=== PATIENT | female | born 1980 | race Caucasian/White ===

== ENCOUNTER → 2017-02-27 | Outpatient (CLI) | payer BC ==
[~2017-02-27] MED LIST: ACET-749 PO; MTR600X PO; PRENTAB26 PO
== END | disposition home or self-care (01) ==
LOC: C.PAPS 09:55
PROVIDERS: ATTEND Physician Assistant
DX: Z01.419 Encounter for gynecological examination (general) (routine) without abnormal findings (principal)

== ENCOUNTER 2019-04-28 07:22 | Inpatient (IN) ==
[2019-04-28] MEDS ORDERED: OXYTOCIN 30 UNITS/500 ML BAG IV PRN ×2 (08:49→10:20)
[2019-04-28] MEDS ORDERED: LACTATED RINGER'S 1,000 ML IV PRN (08:49)
--- NOTE | 2019-04-28 08:59 | History & Physical Report ---
Date of Service April 28, 2019 Assessment & Plan (1) : Spontaneous labor. Will obtain labs and IV access. Anticipate . Patient would like to do unmedicated delivery - she did this with her previous delivery. History of Present Illness Chief Complaint: spontaneous labor Primary Care Provider: Lanie Simon DO 38yo @ 37 5/7 presents with contractions and bloody show. + movement. No leaking of fluid. complicated by advanced maternal age and obesity. 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 Membranes intact. Small amount of bloody show. FHT Cat 1 [place] Q 3 min Results & Data Vital Signs (Past 12 Hours) Vital Signs Temp Pulse Resp BP 04/28/19 07:56 90 125/81 04/28/19 07:33 36.7 C 20 04/28/19 07:30 94 H 156/82 H
[2019-04-28 09:17] LABS: Hematocrit (blood only) 40.7 % (37-47); Mean Corpuscular Volume 88.7 fL (80-100); Mean Platelet Volume 11.6 fL (7.4-10.4); Platelet Count 189 K/uL (130-400); RDW Coefficient of Variation 14.2 % (11.5-14.5); RDW Standard Deviation 46.1 fL (36.4-46.3); Red Blood Count 4.59 M/uL (4.2-5.4); White Blood Count 16.86 K/uL (4.8-10.8)
[2019-04-28] MEDS ORDERED: OXYTOCIN 30 UNITS/500ML NSS ONE (09:20)
[2019-04-28 09:22] LABS: Mean Corpuscular Hgb Conc 34.4 g/dL (32-36)
[2019-04-28] MEDS ORDERED: IBUPROFEN 600 MG TAB PO ONE (10:18)
--- NOTE | 2019-04-28 10:19 | Delivery Summary ---
Vaginal Delivery Summary Date of Service April 28, 2019 Vaginal Delivery Summary Vaginal Delivery Summary: Pre-delivery diagnoses: 38yo @ 37 12/25, spontaneous labor, advanced maternal age Post-delivery diagnoses: same Procedure: spontaneous vaginal delivery Surgeon: Corrine Birmingham DO Complications: none Findings: Viable male . Apgars: 8/9 . Weight pending, please see nursery records Estimated blood loss: 300ml Description of delivery: The patient progressed to complete without anesthesia. She then began to push. She spontaneously vaginally delivered a viable male from the cephalic presentation. The head delivered in EDUIN position. Nuchal cord x 1, easily reduced. The anterior shoulder delivered, followed by the posterior shoulder, followed by the body. The baby was placed on mother's abdomen and a spontaneous cry was heard. Delayed cord clamping was employed, and the cord was doubly clamped and cut. Cord blood was obtained. The placenta was delivered spontaneously intact with a 3-vessel cord. The uterus and vagina were swept of clots and debris. IV pitocin was given. The uterus became firm. The cervix, vagina, and perineum were inspected and a 1st degree perineal lacerations was noted. It was hemostatic, and patient elected to leave this to heal naturally rather than suture repair. Excellent hemostasis was observed. The mother and baby are recovering in stable and good condition in the room. Sponge and instrument counts were correct x 2. Corrine Birmingham DO [facility] [place]
[2019-04-28] MEDS ORDERED: BISACODYL 10 MG SUPP PR PRN (10:20)
[2019-04-28] MEDS ORDERED: SUPERCREAM 0.870% 15 GM JAR EXT PRN (10:20)
[2019-04-28] MEDS ORDERED: ACETAMINOPHEN 325 MG TAB PO PRN (10:20)
[2019-04-28] MEDS ORDERED: BENZOCAINE 20% AER SPR 82.5 GM CAN EXT PRN (10:20)
[2019-04-28] MEDS ORDERED: HYDROCORTISONE ACETATE 25 MG SUPP PR PRN (10:20)
[2019-04-28] MEDS ORDERED: OXYCODONE/ACETAMINOPHEN 5mg/325mg TAB PO PRN (10:20)
[2019-04-28] MEDS: DOCUSATE SODIUM 100 MG CAP PO SCH (20:48)
[2019-04-28] MEDS: IBUPROFEN 600 MG TAB PO PRN (20:49)
[2019-04-29] MEDS: IBUPROFEN 600 MG TAB PO PRN ×4 (03:32→23:16)
--- NOTE | 2019-04-29 06:18 | Obstetrical Progress Note ---
Date of Service <Prudencio Kaye MD - Last Filed: 04/29/19 07:04> April 29, 2019 Assessment & Plan <Prudencio Kaye MD - Last Filed: 04/29/19 07:04> (1) : on 04/28 PPD#1 -Feels well today, eating well, voiding well, ambulating well -pain well controlled -After discharge will have 6 week follow-up Subjective <Prudencio Kaye MD - Last Filed: 04/29/19 07:04> Feeling well today, having some continued abdominal cramping, able to void without difficulties; continued to have some spotting but has continued to lessen Eyes: no diplopia and no worsening vision Cardiovascular: no chest pain and no dyspnea Gastrointestinal: no abdominal pain, no nausea, no vomiting, no constipation and no diarrhea/loose stools Physical Exam <Prudencio Kaye MD - Last Filed: 04/29/19 07:04> Cardiovascular Rate/Rhythm: regular rate and regular rhythm Heart Sounds: normal S1 and normal S2; no gallop, no murmur and no cardiac rub Extremities: no edema Genitourinary OB Exam Abdomen: + fundal height Fundus: + firm and + relation to umbilicus (4cm below) Manual OB Exam: + cervical dilation, + cervical effacement, + station and + amniotic fluid OB Exam Monitor Tracing: + external FHT monitor used Results & Data <Prudencio Kaye MD - Last Filed: 04/29/19 07:04> Vital Signs (Past 12 Hours) Vital Signs Temp Pulse Resp BP Pulse Ox 04/29/19 03:25 36.6 C 101 H 16 129/80 97 04/28/19 23:05 36.5 C 86 16 113/72 96 04/28/19 19:55 37.2 C 96 H 18 114/74 95 Medications Administered Current Inpatient Medications Acetaminophen (Tylenol) 650 mg PO Q6H PRN PRN Reason: Pain/BASSETT/Fever Stop: 05/28/19 10:19 Benzocaine (Dermoplast Pain Relieving [place]) 1 appln EXT PRN PRN PRN Reason: Perineal Discomfort Stop: 05/28/19 10:19 Bisacodyl (Dulcolax) 5 mg PO 2000 [facility] Stop: 04/29/19 20:01 Bisacodyl (Dulcolax) 10 mg [place] DAILY PRN PRN Reason: No BM on 2nd post- day Stop: 05/28/19 10:19 Cocaine HCl (Supercream 0.870%) 1 gm EXT BID PRN PRN Reason: Hemorrhoidal Inflammation Stop: 05/12/19 10:19 Diphtheria/Pertussis/Tetanus Vacc (Adacel) 0.5 ml IM .ONCE ONE Stop: 04/29/19 09:01 Docusate Sodium (Colace) 100 mg PO DAILY@08,21 [facility] Stop: 05/28/19 20:59 Last Admin: 04/28/19 20:48 Dose: 100 mg Documented by: Hydrocortisone (Anusol Hc) 25 mg [place] BID PRN PRN Reason: Hemorrhoidal Inflammation Stop: 05/28/19 10:19 Oxytocin (Pitocin) 30 units in 500 mls @ 333.333 mls/hr IV .Q1H30M PRN; Protocol PRN Reason: Bleeding Control Stop: 05/28/19 10:19 Last Admin: 04/28/19 09:50 Dose: 20 units/hr, 333.3 mls/hr Documented by: Ibuprofen (Motrin) 600 mg PO Q4H PRN PRN Reason: Pain/BASSETT/Cramping/Fever Stop: 05/28/19 10:19 Last Admin: 04/29/19 03:32 Dose: 600 mg Documented by: Oxycodone/Acetaminophen (Percocet 5mg/325mg) 1 tab PO Q4H PRN PRN Reason: Pain not relieved by... Stop: 05/12/19 10:19 Prenat Multivit/Excel Analyst/Iron/Folic Ac ( Vitamin) 1 tab PO DAILY@08 [facility] Stop: 05/29/19 07:59 <Corrine Birmingham DO - Last Filed: 04/29/19 07:48> Co-Signing Physician Notes Resident Physician Supervision Note: I interviewed and examined the patient. Discussed with Dr. Kaye and agree with findings and plan as documented in the note. Any exceptions or clarifications are listed here: PPD#1 doing well. Anticipate DC home tomorrow. In resident's note above, there is an error stating there is cervical exam and monitoring - this is not correct, but unable to remove this from [facility] for some reason. Documented By: Corrine B. Vinnie, DO Resident Activity Tracking <Prudencio Kaye MD - Last Filed: 04/29/19 07:04> Resident Involvement: Resident Care Provided Care Provided: Adult Hospital Medicine
[2019-04-29 06:52] LABS: Hematocrit (blood only) 33.9 % (37-47); Hemoglobin 11.2 g/dL (12.0-16.0); Mean Corpuscular Volume 90.2 fL (80-100); Platelet Count 166 K/uL (130-400); RDW Coefficient of Variation 14.4 % (11.5-14.5); RDW Standard Deviation 47.5 fL (36.4-46.3); Red Blood Count 3.76 M/uL (4.2-5.4); White Blood Count 12.74 K/uL (4.8-10.8)
[2019-04-29] MEDS: PRENATAL VITAMIN 1 TAB PO SCH (08:43)
[2019-04-29] MEDS: DOCUSATE SODIUM 100 MG CAP PO SCH ×2 (08:43→19:21)
[2019-04-29] MEDS ORDERED: DIPHTHERIA/TETANUS/PERTUSSIS 0.5 ML SYR/VIAL IM ONE (09:00)
[2019-04-29] MEDS ORDERED: BISACODYL 5 MG TABEC PO SCH (20:00)
[2019-04-30] MEDS: IBUPROFEN 600 MG TAB PO PRN (06:15)
[2019-04-30 06:32] LABS: Hematocrit (blood only) 35.4 % (37-47); Hemoglobin 11.6 g/dL (12.0-16.0)
--- NOTE | 2019-04-30 06:46 | Obstetrical Progress Note ---
Date of Service <Prudencio Kaye MD - Last Filed: 04/30/19 06:46> April 30, 2019 Assessment & Plan <Prudencio Kaye MD - Last Filed: 04/30/19 06:46> (1) : on 04/28 PPD#2 -Feels well today, eating well, voiding well, ambulating well -pain well controlled -After discharge will have 6 week follow-up Subjective <Prudencio Kaye MD - Last Filed: 04/30/19 06:46> Ms Daniel is a 38y/o female ; PPD #2 following spontaneous vaginal delivery at 37 weeks; doing well this morning; some continued abdominal cramping/pain; voiding well, passing gas, but no bowel movements; tolerating meals overnight; and able to ambulate some; some persistent spotting with intermittent improvement this morning. Review of Systems Constitutional: denies fever; chills; sweats; headache Respiratory: denies shortness of breath, difficulty breathing Cardiac: denies chest pain; palpitations; chest pressure Breast: denies breast pain : denies dysuria Physical Exam <Prudencio Kaye MD - Last Filed: 04/30/19 06:46> General: alert; oriented; no acute distress Cardiac: RRR; no m/g/r Respiratory: CTAB a/p; no wheezes/rales/rhonchi; no increased work of breathing; symmetrical chest rise; no respiratory distress Abdomen: soft; NT/ND; bowel sounds positive Uterus: uterine fundus firm; palpable 6cm below umbilicus Lower extrem: no lower extremity edema or swelling; no deep calf pain; Judy's sign negative b/l Results & Data <Prudencio Kaye MD - Last Filed: 04/30/19 06:46> Vital Signs (Past 12 Hours) Vital Signs Temp Pulse Resp BP Pulse Ox 04/29/19 22:50 36.8 C 94 H 16 124/78 96 04/29/19 19:20 36.4 C L 98 H 16 127/80 97 Laboratory Results 04/30/19 04/29/19 Range/Units 06:09 06:39 WBC 12.74 H (4.8-10.8) K/uL RBC 3.76 L (4.2-5.4) M/uL Hgb 11.6 L 11.2 L (12.0-16.0) g/dL Hct 35.4 L 33.9 L (37-47) % MCV 90.2 (80-100) fL MCH 29.8 (25-34) pg MCHC 33.0 (32-36) g/dL RDW Std Deviation 47.5 H (36.4-46.3) fL RDW Coeff of Divya 14.4 (11.5-14.5) % Plt Count 166 (130-400) K/uL MPV 11.0 H (7.4-10.4) fL Medications Administered Current Inpatient Medications Acetaminophen (Tylenol) 650 mg PO Q6H PRN PRN Reason: Pain/BASSETT/Fever Stop: 05/28/19 10:19 Benzocaine (Dermoplast Pain Relieving [place]) 1 appln EXT PRN PRN PRN Reason: Perineal Discomfort Stop: 05/28/19 10:19 Bisacodyl (Dulcolax) 10 mg [place] DAILY PRN PRN Reason: No BM on 2nd post- day Stop: 05/28/19 10:19 Cocaine HCl (Supercream 0.870%) 1 gm EXT BID PRN PRN Reason: Hemorrhoidal Inflammation Stop: 05/12/19 10:19 Docusate Sodium (Colace) 100 mg PO DAILY@08,21 [facility] Stop: 05/28/19 20:59 Last Admin: 04/29/19 19:21 Dose: 100 mg Documented by: Hydrocortisone (Anusol Hc) 25 mg DC BID PRN PRN Reason: Hemorrhoidal Inflammation Stop: 05/28/19 10:19 Oxytocin (Pitocin) 30 units in 500 mls @ 333.333 mls/hr IV .Q1H30M PRN; Protocol PRN Reason: Bleeding Control Stop: 05/28/19 10:19 Last Admin: 04/28/19 09:50 Dose: 20 units/hr, 333.3 mls/hr Documented by: Ibuprofen (Motrin) 600 mg PO Q4H PRN PRN Reason: Pain/BASSETT/Cramping/Fever Stop: 05/28/19 10:19 Last Admin: 04/30/19 06:15 Dose: 600 mg Documented by: Oxycodone/Acetaminophen (Percocet 5mg/325mg) 1 tab PO Q4H PRN PRN Reason: Pain not relieved by... Stop: 05/12/19 10:19 Prenat Multivit/[place]/Iron/Folic Ac ( Vitamin) 1 tab PO DAILY@08 [facility] Stop: 05/29/19 07:59 Last Admin: 04/29/19 08:43 Dose: 1 tab Documented by: <Jessica Rust MD, FACOG - Last Filed: 04/30/19 07:51> Co-Signing Physician Notes Resident Physician Supervision Note: I was present with Dr. Kaye during the history and exam. I discussed the case with the resident and agree with the findings and plan as documented in the note. Any exceptions or clarifications are listed here: doing well, ready for discharge. ff 2 down. nt. instructions reviewed. f/u 6 wk pp check reviewed. Documented By: Jessica Rust MD, FACOG Resident Activity Tracking <Prudencio Kaye MD - Last Filed: 04/30/19 06:46> Resident Involvement: Resident Care Provided Care Provided: OB Delivery
[2019-04-30] MEDS: PRENATAL VITAMIN 1 TAB PO SCH (08:43)
[2019-04-30] MEDS: DOCUSATE SODIUM 100 MG CAP PO SCH (08:43)
== END 2019-04-30 12:57 | disposition home or self-care (01) | DRG 807 ==
LOC: OPB 07:22 → 4S1 07:23 → 4S2 12:55
DX: Z37.0 Single live birth; O70.0 First degree perineal laceration during delivery; O09.523 Supervision of elderly multigravida, third trimester